=== PATIENT | female | born 1970 | race Hispanic/Latino ===

== ENCOUNTER 2017-09-05 11:41 | Emergency (ER) | payer MEDICAID, OTHER ==
[2017-09-05 12:09] LABS: Basophils % (Auto) 0.1 % (0.0-1.8); Eosinophils # (Auto) 0.5 K/mm3 (0.0-0.4); Eosinophils % (Auto) 8.2 % (0.0-4.3); Hematocrit 35.3 % (30.3-42.9); Hemoglobin 12.1 gm/dl (10.1-14.3); Lymphocytes # (Auto) 1.4 K/mm3 (1.2-5.4); Lymphocytes % (Auto) 24.3 % (13.4-35.0); Mean Corpuscular HGB Conc 34 % (30-34); Mean Corpuscular Hemoglobin 31 pg (28-32); Mean Corpuscular Volume 89 fl (79-97); Monocytes # (Auto) 0.5 K/mm3 (0.0-0.8); Monocytes % (Auto) 9.1 % (0.0-7.3); Platelet Count 299 K/mm3 (140-440); Red Blood Count 3.97 M/mm3 (3.65-5.03); Red Cell Distribution Width 14.1 % (13.2-15.2)
[2017-09-05 12:32] LABS: Bacteria,Urine 1+ /HPF (Negative); Bilirubin,Urine NEG (Negative); Blood,Urine SM (Negative); Color,Urine Yellow (Yellow); Protein,Urine <15 mg/dL mg/dL (Negative); Urobilinogen,Urine < 2.0 mg/dL (<2.0)
[2017-09-05 12:43] LABS: BUN/Creatinine Ratio 13; Blood Urea Nitrogen 9 mg/dL (7-17); Calcium 9.2 mg/dL (8.4-10.2); Hemolysis Index 6
[2017-09-05 12:46] LABS: Cannabinoid Screen,Urine PRESUMPTIVE NEGATIVE; Cocaine Screen,Urine PRESUMPTIVE NEGATIVE; Methadone Screen,Urine PRESUMPTIVE NEGATIVE; Opiate Screen,Urine PRESUMPTIVE NEGATIVE
[2017-09-05 13:02] LABS: Amphetamine Screen,Urine PRESUMPTIVE POSITIVE; Benzodiazepines Screen,Urine PRESUMPTIVE POSITIVE
[2017-09-05] MEDS ORDERED: ROCEPHIN/NS 1 GM/50 ML 1 GM/50 ML BAG IV ONE (18:38)
[2017-09-05] MEDS ORDERED: PEPCID IV ONE (18:38)
--- NOTE | 2017-09-05 18:40 | Emergency Department Report ---
HPI - General Chief Complaint: Allergic Reaction Time Seen by Provider: 09/05/17 18:24 ED Past Medical Hx - Past Medical History Previous Medical History?: Yes Hx Psychiatric Treatment: Yes (BIPOLAR) Hx Asthma: Yes - Surgical History Past Surgical History?: Yes Additional Surgical History: HYSTERECTOMY - Social History Smoking Status: Current Every Day Smoker Substance Use Type: Alcohol, Methamphetamines - Medications Home Medications: Home Medications Medication Instructions Recorded Confirmed Last Taken Type ALPRAZolam [Xanax TAB] 1 mg PO TID PRN #10 tab 03/22/14 06/25/14 3 Days Ago Rx ~06/22/14 Naproxen [Naprosyn] 250 mg PO BID PRN 06/25/14 06/25/14 Unknown History Nitrofurantoin [place]/M-Cryst 100 mg PO Q12HR #6 capsule 06/25/14 Unknown Rx [Macrobid] Cephalexin [Keflex] 500 mg PO Q8HR #30 cap 09/05/17 Unknown Rx Famotidine [Pepcid] 20 mg PO BID #20 tablet 09/05/17 Unknown Rx Prednisone 50 mg PO DAILY #6 tablet 09/05/17 Unknown Rx diphenhydrAMINE [Benadryl CAP] 25 mg PO Q6HR PRN #20 capsule 09/05/17 Unknown Rx ED Review of Systems ROS: Stated complaint: ALLERGIC REACTION Other details as noted in HPI Physical Exam - Physical Exam Vital Signs: Vital Signs 09/05/17 09/05/17 11:46 18:26 Temperature 97.4 F L 97.8 F Pulse Rate 106 H 74 Respiratory 18 22 Rate Blood Pressure 133/83 113/75 O2 Sat by Pulse 95 97 Oximetry ED Course Vital Signs 09/05/17 09/05/17 11:46 18:26 Temperature 97.4 F L 97.8 F Pulse Rate 106 H 74 Respiratory 18 22 Rate Blood Pressure 133/83 113/75 O2 Sat by Pulse 95 97 Oximetry ED Medical Decision Making - Lab Data Result diagrams: 09/05/17 11:57 09/05/17 11:57 Critical care attestation.: If time is entered above; I have spent that time in minutes in the direct care of this critically ill patient, excluding procedure time. ED Disposition Clinical Impression: Allergic reaction Qualifiers: Encounter type: initial encounter Qualified Code(s): T78.40XA - Allergy, unspecified, initial encounter UTI (urinary tract infection) Qualifiers: Urinary tract infection type: acute cystitis Hematuria presence: without hematuria Qualified Code(s): N30.00 - Acute cystitis without hematuria Disposition: TO HOME OR SELFCARE Is pt being admited?: No Does the pt Need Aspirin: No Condition: Stable Instructions: Urinary Tract Infection in Women (ED), Allergies (ED) Additional Instructions: Please follow up with your regular doctor tomorrow morning. Return to the ED if your condition worsens. Prescriptions: Cephalexin [Keflex] 500 mg PO Q8HR #30 cap diphenhydrAMINE [Benadryl CAP] 25 mg PO Q6HR PRN #20 capsule PRN Reason: Itching Famotidine [Pepcid] 20 mg PO BID #20 tablet Prednisone 50 mg PO DAILY #6 tablet Referrals: KEVIN SINGH MD [Staff Physician] - 3-5 Days PRIMARY CARE, [Primary Care Provider] - 3-5 Days
[2017-09-05 19:16] LABS: Alanine Aminotransferase 12 units/L (7-56)
[2017-09-05] MEDS ORDERED: cefTRIAXone 1 GM in NACL 0.9% 20 ML IV ONE (19:30)
[2017-09-05 19:37] LABS: Bilirubin,Direct < 0.2 mg/dL (0-0.2)
--- NOTE | 2017-09-05 20:37 | XRay Report ---
FINAL REPORT EXAM: XR CHEST 1V AP HISTORY: leg swelling TECHNIQUE: AP portable view of the chest PRIORS: None. FINDINGS: Lines, tubes, and devices: N/A Lungs and pleura: Trachea is normal in position. Lungs are clear of infiltrate, pleural effusion, vascular congestion, or pneumothorax. Cardiomediastinal silhouette: Heart is enlarged. Patient is rotated to the right. Other: Bony structures are intact. IMPRESSION: No acute cardiopulmonary process seen. Cardiomegaly.
--- NOTE | 2017-09-05 22:22 | Emergency Department Report ---
ED Allergic Reaction HPI - General Chief complaint: Allergic Reaction Stated complaint: ALLERGIC REACTION Time Seen by Provider: 09/05/17 18:24 Source: patient Mode of arrival: Ambulatory Limitations: No Limitations - History of Present Illness MD Complaint: allergic reaction -: Sudden Exposure: unknown Symptoms: rash Severity: moderate Treatment Prior to Arrival: none Previous Allergy History: none - Related Data Home Medications Medication Instructions Recorded Confirmed Last Taken Naproxen [Naprosyn] 250 mg PO BID PRN 06/25/14 06/25/14 Unknown Previous Rx's Medication Instructions Recorded Last Taken Type ALPRAZolam [Xanax TAB] 1 mg PO TID PRN #10 tab 03/22/14 3 Days Ago Rx ~06/22/14 Nitrofurantoin [place]/M-Cryst 100 mg PO Q12HR #6 capsule 06/25/14 Unknown Rx [Macrobid] Cephalexin [Keflex] 500 mg PO Q8HR #30 cap 09/05/17 Unknown Rx Famotidine [Pepcid] 20 mg PO BID #20 tablet 09/05/17 Unknown Rx Prednisone 50 mg PO DAILY #6 tablet 09/05/17 Unknown Rx diphenhydrAMINE [Benadryl CAP] 25 mg PO Q6HR PRN #20 capsule 09/05/17 Unknown Rx Allergies Allergy/AdvReac Type Severity Reaction Status Date / Time No Known Allergies Allergy Unverified 03/22/14 19:28 ED Review of Systems ROS: Stated complaint: ALLERGIC REACTION Other details as noted in HPI Comment: All other systems reviewed and negative Constitutional: denies: chills, fever Eyes: denies: eye pain, eye discharge ENT: denies: ear pain, dental pain Respiratory: denies: cough, shortness of breath Cardiovascular: denies: chest pain, palpitations, dyspnea on exertion Endocrine: no symptoms reported Gastrointestinal: denies: abdominal pain, nausea, vomiting, diarrhea Genitourinary: denies: urgency, dysuria, frequency Musculoskeletal: denies: back pain, joint swelling Skin: rash, pruritus. denies: lesions Neurological: denies: headache, weakness, numbness Psychiatric: denies: anxiety, depression Hematological/Lymphatic: denies: easy bleeding, easy bruising ED Past Medical Hx - Past Medical History Previous Medical History?: Yes Hx Psychiatric Treatment: Yes (BIPOLAR) Hx Asthma: Yes - Surgical History Past Surgical History?: Yes Additional Surgical History: HYSTERECTOMY - Social History Smoking Status: Current Every Day Smoker Substance Use Type: Alcohol, Methamphetamines - Medications Home Medications: Home Medications Medication Instructions Recorded Confirmed Last Taken Type ALPRAZolam [Xanax TAB] 1 mg PO TID PRN #10 tab 03/22/14 06/25/14 3 Days Ago Rx ~06/22/14 Naproxen [Naprosyn] 250 mg PO BID PRN 06/25/14 06/25/14 Unknown History Nitrofurantoin [place]/M-Cryst 100 mg PO Q12HR #6 capsule 06/25/14 Unknown Rx [Macrobid] Cephalexin [Keflex] 500 mg PO Q8HR #30 cap 09/05/17 Unknown Rx Famotidine [Pepcid] 20 mg PO BID #20 tablet 09/05/17 Unknown Rx Prednisone 50 mg PO DAILY #6 tablet 09/05/17 Unknown Rx diphenhydrAMINE [Benadryl CAP] 25 mg PO Q6HR PRN #20 capsule 09/05/17 Unknown Rx ED Physical Exam - General Limitations: No Limitations General appearance: alert, in no apparent distress - Head Head exam: Present: atraumatic, normocephalic, normal inspection - Eye Eye exam: Present: normal appearance, PERRL, EOMI Pupils: Present: normal accommodation - ENT ENT exam: Present: normal exam, normal orophraynx, mucous membranes moist - Neck Neck exam: Present: normal inspection, full ROM. Absent: tenderness - Respiratory Respiratory exam: Present: normal lung sounds bilaterally. Absent: respiratory distress, wheezes, rhonchi - Cardiovascular Cardiovascular Exam: Present: regular rate, normal rhythm, normal heart sounds - GI/Abdominal GI/Abdominal exam: Present: soft. Absent: distended, tenderness, guarding, rebound, normal bowel sounds - Extremities Exam Extremities exam: Present: normal inspection, full ROM, normal capillary refill. Absent: tenderness - Back Exam Back exam: Present: normal inspection, full ROM. Absent: tenderness - Neurological Exam Neurological exam: Present: alert, oriented X3, CN II-XII intact - Psychiatric Psychiatric exam: Present: normal affect, normal mood - Skin Skin exam: Present: warm, dry, intact, normal color ED Course Vital Signs 09/05/17 09/05/17 11:46 18:26 Temperature 97.4 F L 97.8 F Pulse Rate 106 H 74 Respiratory 18 22 Rate Blood Pressure 133/83 113/75 O2 Sat by Pulse 95 97 Oximetry - Reevaluation(s) Reevaluation #1: 09/05/17 22:19 Patient says she is feeling much better and her rash has resolved. She wants to be discharged home. ED Medical Decision Making - Lab Data Result diagrams: 09/05/17 11:57 09/05/17 11:57 - Radiology Data Radiology results: report reviewed - Medical Decision Making Allergic reaction. Critical care attestation.: If time is entered above; I have spent that time in minutes in the direct care of this critically ill patient, excluding procedure time. ED Disposition Clinical Impression: Allergic reaction Qualifiers: Encounter type: initial encounter Qualified Code(s): T78.40XA - Allergy, unspecified, initial encounter UTI (urinary tract infection) Qualifiers: Urinary tract infection type: acute cystitis Hematuria presence: without hematuria Qualified Code(s): N30.00 - Acute cystitis without hematuria Disposition: TO HOME OR SELFCARE Is pt being admited?: No Does the pt Need Aspirin: No Condition: Stable Instructions: Urinary Tract Infection in Women (ED), Allergies (ED) Additional Instructions: Please follow up with your regular doctor tomorrow morning. Return to the ED if your condition worsens. Prescriptions: Cephalexin [Keflex] 500 mg PO Q8HR #30 cap diphenhydrAMINE [Benadryl CAP] 25 mg PO Q6HR PRN #20 capsule PRN Reason: Itching Famotidine [Pepcid] 20 mg PO BID #20 tablet Prednisone 50 mg PO DAILY #6 tablet Referrals: PRIMARY MD EVE [Primary Care Provider] - 3-5 Days KEVIN SINGH MD [Staff Physician] - 3-5 Days Time of Disposition: 22:23
[2017-09-06 00:46] VITALS: BP 124/68
== END 2017-09-05 23:15 | disposition home or self-care (01) ==
LOC: ED 11:41
DX: T78.40XA Allergy, unspecified, initial encounter (principal); N39.0 Urinary tract infection, site not specified; J45.909 Unspecified asthma, uncomplicated; F17.200 Nicotine dependence, unspecified, uncomplicated; F15.10 Other stimulant abuse, uncomplicated
CPT/HCPCS: 36415; 71045; 80048; 80074; 80307; 81001; 83880; 85025; 96374; 96375; 99284; G0480; J0696; J2930; 80320